=== PATIENT | male | born 1980 | race Caucasian/White ===

== ENCOUNTER 2016-04-19 10:03 | Emergency (ER) | payer OTHER, SELFPAY ==
[~2016-04-19] VITALS: Ht 172.7 cm; Wt 84.1 kg
[~2016-04-19 10:03] MED LIST: NOCURR
[2016-04-19] MEDS ORDERED: KETOROLAC TROMETHAMINE 60 MG/2 ML VIAL IM ONE (14:45)
[2016-04-19 15:12] VITALS: BP 132/82
== END 2016-04-19 15:13 | disposition home or self-care (01) ==
LOC: EMS 10:05
DX: M54.5 Low back pain (principal)
CPT/HCPCS: 96372; 99283; J1885